=== PATIENT | female | born 1975 | race Caucasian/White ===

== ENCOUNTER 2018-10-27 15:58 | Emergency (ER) | payer MEDICAID ==
[~2018-10-27] VITALS: Ht 162.6 cm; Wt 111.1 kg
[2018-10-27 16:05] VITALS: Ht 162.6 cm; Wt 111.1 kg
[2018-10-27 18:50] LABS: BASOPHIL % 0.5 % (0-2); PLATELET COUNT 244 x10^3mcL (130-400); RED CELL DISTRIBUTION WIDTH 13.1 % (11.5-14.5)
[2018-10-27 18:57] LABS: CALCIUM 9.4 mg/dL (8.5-10.1); CARBON DIOXIDE 27.7 mmol/L (21-32); CHLORIDE SERUM 107 mmol/L (98-107); CREATININE SERUM 0.6 mg/dL (0.6-1.0); GFR1 > 60 mL/min; GLUCOSE SERUM 110 mg/dL (74-106); POTASSIUM SERUM 3.5 mmol/L (3.5-5.1); SODIUM SERUM 142 mmol/L (136-145)
[2018-10-27 19:02] LABS: ALBUMIN 3.7 g/dL (3.4-5.0); ALKALINE PHOSPHATASE 77 U/L (46-116); ALT/SGPT 37 U/L (14-59); AST/SGOT 19 U/L (15-37); BILIRUBIN TOTAL 0.21 mg/dL (0.20-1.00); LIPASE 134 IU/L (73-393); TOTAL PROTEIN, SERUM 7.5 g/dL (6.4-8.2)
[2018-10-27 19:25] VITALS: BP 1345/80
== END 2018-10-27 19:45 | disposition home or self-care (01) ==
LOC: ED 15:58
PROVIDERS: Emergency Medicine
DX: K43.9 Ventral hernia without obstruction or gangrene (principal); F41.9 Anxiety disorder, unspecified
CPT/HCPCS: 36415